=== PATIENT | male | born 1960 | race Hispanic/Latino ===

== ENCOUNTER → 2020-01-30 | Outpatient (CLI) | payer BC ==
[~2020-01-30] MED LIST: ASPI-1181 PO; ATOR-2 PO; LEVO25TA54 PO; LOSA25TA41 PO; METF-446 PO; NAPR-1023 PO
== END | disposition home or self-care (01) ==
LOC: OIH 12:46
PROVIDERS: ATTEND Internal Medicine
DX: M47.22 Other spondylosis with radiculopathy, cervical region (principal)
CPT/HCPCS: 71046; 72040